=== PATIENT | male | born 1990 | race Caucasian/White ===

== ENCOUNTER 2020-09-26 11:33 | Emergency (ER) | payer MEDICAID, SELFPAY ==
--- NOTE | ~2020-09-26 | XR_ITS ---
EXAMINATION: XR CHEST CLINICAL INFORMATION: Dyspnea. COMPARISON: None TECHNIQUE: Frontal view of the chest was obtained. FINDINGS: The lungs are expanded without acute pneumonic process. The heart size and vascularity is normal. There is an elevated left hemidiaphragm. No gross bony abnormality seen.. XR/XR chest 1V IMPRESSION: Elevated left hemidiaphragm. The lungs are otherwise clear.
--- NOTE | ~2020-09-26 | CT_ITS ---
EXAMINATION: CT ANGIOGRAM OF THE CHEST WITH AND WITHOUT CONTRAST (CT PULMONARY ANGIOGRAM FOR PE) CLINICAL INFORMATION: Reason for Exam recent travel, dyspnea r/o PE COMPARISON: None TECHNIQUE: Prior to contrast administration, noncontrast localization images were obtained. Subsequently, multidetector volumetric imaging was performed from the thoracic inlet to below the diaphragms following the administration of 80 mL Omnipaque 350 intravenous contrast. No contrast reaction reported Sagittal, coronal, and MIP oblique sagittal reformatted images were obtained on the CT workstation, uploaded to PACS, and reviewed. This CT examination was performed using dose optimization techniques as appropriate, variously including the following: *Automated exposure control *Adjustment of mA and/or kV according to patient size (this includes techniques or standardized protocols for targeted exams where dose is matched to indication/reason for exam; i.e. extremities or head) *Use of iterative reconstruction technique Total exam dose-length product 435 mGy-cm FINDINGS: QUALITY OF STUDY/CONTRAST BOLUS: Satisfactory. PULMONARY ARTERIES: No central or segmental pulmonary emboli. THORACIC AORTA: No aneurysm or dissection. LUNG: The lungs are expanded with left lower lobe posterior basilar atelectasis. Rest lungs are clear. PLEURA: No pleural effusion or pneumothorax. MEDIASTINUM: Thyroid lobes are symmetrical and normal. The central trachea and the bronchi widely patent. Heart size and the great vessels are normal caliber. There is no pleural effusion. No abnormal size mediastinal lymph nodes seen. No evidence of septal bowing or right heart strain. CHEST WALL/AXILLA: No axillary or internal mammary lymphadenopathy. OSSEOUS STRUCTURES: No lytic or sclerotic process seen. UPPER ABDOMEN: Visualized liver, spleen, pancreas and bilateral adrenal glands are unremarkable. There are no radiopaque gallstones No reflux of contrast into the hepatic veins to suggest elevated right heart pressures. CT/CT angio chest PE protocol IMPRESSION: No evidence of PE. No aneurysmal dissection or aneurysm. Left lower lobe posterior basal segment atelectasis. VTE: negative
[2020-09-26 11:45] VITALS: BP 140/85; PULSE 109; RESP 30; O2SAT 98; BMI 24.0
--- NOTE | 2020-09-26 12:06 | ECG_ITS ---
Test Reason : SOB Blood Pressure : / mmHG Vent. Rate : 101 BPM Atrial Rate : 101 BPM P-R Int : 114 ms QRS Dur : 090 ms QT Int : 330 ms P-R-T Axes : 048 006 -04 degrees QTc Int : 427 ms Sinus tachycardia Voltage criteria for left ventricular hypertrophy Possible Inferior infarct , age undetermined Abnormal ECG No previous ECGs available Referred By: Reshma Montague Electronically Signed By:JANETTE RODRÍGUEZ
--- NOTE | 2020-09-26 12:09 | ED_ITS ---
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 for 42 days, PTX, NSTEMI, stroke resulting in L arm and leg weakness comes in with c/o shortness of breath, cough, ran out of his pain medications, sent by PCP - given neb PEPPER SNIDER elicited complaint: shortness of breath and cough Pertinent past history: asthma Onset (ago): day(s) (2) Context: recent illness Timing: constant and progressively worsening Severity: moderate Exacerbating factors: exertion and coughing Relieving factors: bronchodilators Known history of: asthma Associated symptoms: cough and wheezing Treatment prior to arrival: bronchodilator Related Data Home Medications Medication Instructions Recorded Confirmed albuterol sulfate 2 inh INHALATION Q4H PRN 09/26/20 09/26/20 aspirin 81 mg PO DAILY 09/26/20 09/26/20 atorvastatin [Lipitor] 20 mg PO BEDTIME 09/26/20 09/26/20 clopidogrel 75 mg PO DAILY 09/26/20 09/26/20 diltiazem HCl 30 mg PO TID 09/26/20 09/26/20 gabapentin 300 mg PO BEDTIME 09/26/20 09/26/20 lorazepam 1 mg PO BEDTIME PRN 09/26/20 09/26/20 oxycodone 5 mg PO Q12H PRN 09/26/20 09/26/20 Allergies Allergy/AdvReac Type Severity Reaction Status Date / Time No Known Allergies Allergy Unverified 03/03/20 18:46 Review of Systems Review of Systems: Constitutional : No Fever, No Chills ENT/Mouth : No sore throat, No Rhinorrhea, No Swallowing Difficulty Eyes: No Eye Pain, No Swelling, No Redness Cardiovascular : No Chest Pain, positive SOB, No Orthopnea, no Edema Respiratory : pos Cough, No Sputum, pos Wheezing, positive dyspnea Gastrointestinal : No Nausea, No Vomiting, No Diarrhea, No abdominal Pain, No Hematochezia, No Melena Genitourinary : No Dysuria, No Urinary Frequency, No Hematuria Musculoskeletal : pos joint pain, No Myalgias Skin : No Skin Lesions, No rash Neuro : No Weakness, No Numbness, No Dizziness, No Headache Psych : No Anxiety/Panic, No Depression Heme/Lymph: No Bruising, No Lymphadenopathy Endocrine : No Polyuria, No Polydipsia All other systems reviewed and are negative [facility] Past Medical History Attestation statement: The following information was validated with the patient. Medical History Asthma Endocarditis Myocardial infarction Stroke Social History Social History Smoking Status: Former smoker Use of substances other than those prescribed or required for medical reasons: No Advance Directives: No Advance Directives Information Provided: No Physical Exam Vital Signs: Vital Signs: Last Vital Signs Pulse 98 09/26/20 14:31 Resp 22 H 09/26/20 14:31 BP 140/85 H 09/26/20 11:45 Pulse Ox 97 09/26/20 14:31 Body Mass Index 24.0 Appearance: Alert. Oriented X3. No acute distress. Anxious Eyes: Pupils equal, round and reactive to light. ENT: Pharynx normal. Neck: Normal inspection. Neck supple. CVS: Normal heart rate and rhythm. Pulses normal. Respiratory: No respiratory distress. Breath sounds dimished throughout, wheezing audibly intermittently Abdomen: Soft and non-tender. Skin: Skin warm and dry. Normal skin color. Normal skin turgor. L side of chest and arm healing scars in patches noted Extremities: No lower extremity edema. No calf ttp Neuro: Oriented X 3. LUE weakness will not move due to pain, bilateral LE weakness. No sensory deficit. Course Course Course Narrative: ddimer elevated PE study ordered signed out to Dr. 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 on antibiotics for 42 days, PTX, NSTEMI, stroke resulting in L arm and leg weakness - here today with worsening shortness of breath x 3 days, had asthma as a child here wheezing - sent by PCP office at this time labs, CXR, cultures, ddimer, troponin, 5mg neb ordered, IV steroids, ran out of his pain medications for L UE normally on oxycodone Lab Data Result diagrams: 09/26/20 12:37 04/12/21 12:36 Labs: Lab Results 09/26/20 09/26/20 09/26/20 Range/Units 12:36 12:36 12:37 WBC 8.6 (4.8-10.8) X10*3/uL RBC 3.54 L (4.60-5.80) X10*6/uL Hgb 10.6 L (14.0-18.0) g/dl Hct 32.2 L (42-52) % MCV 91.0 (80-98) fL MCH 29.9 (27.0-33.0) pg MCHC 32.9 (31.0-36.0) g/dl RDW 13.1 (11.0-16.0) % Plt Count 354 (160-400) X10*3/uL MPV 9.1 L (9.4-12.4) fL Immature Gran % (Auto) 0.6 H (0.0-0.4) % Neut % (Auto) 55.0 (45-73) % Lymph % (Auto) 30.3 (20-40) % [place] % (Auto) 11.2 H (2-11) % Eos % (Auto) 2.4 (0-4) % Baso % (Auto) 0.5 (0-2) % Lymph # (Auto) 2.6 (1.2-4.9) X10*3/uL [place] # (Auto) 1.0 (0.1-1.2) X10*3/uL Eos # (Auto) 0.2 (0.0-0.4) X10*3/uL Baso # (Auto) 0.0 (0.0-0.2) X10*3/uL Abs Immat Gran (auto) 0.05 H (0.00-0.03) X10*3/uL Absolute Neuts (auto) 4.7 (2.0-8.3) X10*3/uL Absolute Nucleated RBC 0.000 (0.0-0.012) X10*3/uL Nucleated RBC % (auto) 0.0 (0.0-0.2) /100WBC PT 11.6 (10.8-13.0) SEC INR 1.0 (0.9-1.1) APTT 33.0 (24.1-38.0) SEC D-Dimer NG/ML Sodium 143 (135-145) mmol/L Potassium 3.7 (3.3-5.1) mmol/L Chloride 108 (96-108) mmol/L Carbon Dioxide 24 (22-29) mmol/L Anion Gap 15 (12-20) BUN 15 (9-16) mg/dL Creatinine 0.76 (0.5-1.4) mg/dL Estim Creat Clear Calc 119.0 Estimated GFR > 60 Random Glucose 103 (60-115) mg/dL Lactic Acid (0.5-2.0) mmol/L Calcium 9.6 (8.4-10.2) mg/dL Magnesium (1.6-2.6) mg/dL Total Bilirubin (0.0-1.0) mg/dL Direct Bilirubin (0.0-0.5) mg/dL AST (5-37) U/L ALT (0-40) U/L Alkaline Phosphatase (39-117) U/L Troponin I High Sens (<3.5-35.0) ng/L Total Protein (6.5-8.0) g/dL Albumin (3.5-5.0) g/dL Lipase (8-78) U/L COVID-19 ([facility]) (Negative) COVID-19 Clin Com 09/26/20 09/26/20 09/26/20 Range/Units 12:37 12:37 12:37 WBC (4.8-10.8) X10*3/uL RBC (4.60-5.80) X10*6/uL Hgb (14.0-18.0) g/dl Hct (42-52) % MCV (80-98) fL MCH (27.0-33.0) pg MCHC (31.0-36.0) g/dl RDW (11.0-16.0) % Plt Count (160-400) X10*3/uL MPV (9.4-12.4) fL Immature Gran % (Auto) (0.0-0.4) % Neut % (Auto) (45-73) % Lymph % (Auto) (20-40) % [place] % (Auto) (2-11) % Eos % (Auto) (0-4) % Baso % (Auto) (0-2) % Lymph # (Auto) (1.2-4.9) X10*3/uL [place] # (Auto) (0.1-1.2) X10*3/uL Eos # (Auto) (0.0-0.4) X10*3/uL Baso # (Auto) (0.0-0.2) X10*3/uL Abs Immat Gran (auto) (0.00-0.03) X10*3/uL Absolute Neuts (auto) (2.0-8.3) X10*3/uL Absolute Nucleated RBC (0.0-0.012) X10*3/uL Nucleated RBC % (auto) (0.0-0.2) /100WBC PT (10.8-13.0) SEC INR (0.9-1.1) APTT (24.1-38.0) SEC D-Dimer 466 NG/ML Sodium (135-145) mmol/L Potassium (3.3-5.1) mmol/L Chloride (96-108) mmol/L Carbon Dioxide (22-29) mmol/L Anion Gap (12-20) BUN (9-16) mg/dL Creatinine (0.5-1.4) mg/dL Estim Creat Clear Calc Estimated GFR Random Glucose (60-115) mg/dL Lactic Acid 1.7 (0.5-2.0) mmol/L Calcium (8.4-10.2) mg/dL Magnesium 1.6 (1.6-2.6) mg/dL Total Bilirubin 0.3 (0.0-1.0) mg/dL Direct Bilirubin < 0.2 (0.0-0.5) mg/dL AST 38 H (5-37) U/L ALT 96 H (0-40) U/L Alkaline Phosphatase 80 (39-117) U/L Troponin I High Sens (<3.5-35.0) ng/L Total Protein 7.1 (6.5-8.0) g/dL Albumin 4.4 (3.5-5.0) g/dL Lipase 53 (8-78) U/L COVID-19 ([facility]) (Negative) COVID-19 Clin Com 09/26/20 09/26/20 Range/Units 12:37 14:03 WBC (4.8-10.8) X10*3/uL RBC (4.60-5.80) X10*6/uL Hgb (14.0-18.0) g/dl Hct (42-52) % MCV (80-98) fL MCH (27.0-33.0) pg MCHC (31.0-36.0) g/dl RDW (11.0-16.0) % Plt Count (160-400) X10*3/uL MPV (9.4-12.4) fL Immature Gran % (Auto) (0.0-0.4) % Neut % (Auto) (45-73) % Lymph % (Auto) (20-40) % [place] % (Auto) (2-11) % Eos % (Auto) (0-4) % Baso % (Auto) (0-2) % Lymph # (Auto) (1.2-4.9) X10*3/uL [place] # (Auto) (0.1-1.2) X10*3/uL Eos # (Auto) (0.0-0.4) X10*3/uL Baso # (Auto) (0.0-0.2) X10*3/uL Abs Immat Gran (auto) (0.00-0.03) X10*3/uL Absolute Neuts (auto) (2.0-8.3) X10*3/uL Absolute Nucleated RBC (0.0-0.012) X10*3/uL Nucleated RBC % (auto) (0.0-0.2) /100WBC PT (10.8-13.0) SEC INR (0.9-1.1) APTT (24.1-38.0) SEC D-Dimer NG/ML Sodium (135-145) mmol/L Potassium (3.3-5.1) mmol/L Chloride (96-108) mmol/L Carbon Dioxide (22-29) mmol/L Anion Gap (12-20) BUN (9-16) mg/dL Creatinine (0.5-1.4) mg/dL Estim Creat Clear Calc Estimated GFR Random Glucose (60-115) mg/dL Lactic Acid (0.5-2.0) mmol/L Calcium (8.4-10.2) mg/dL Magnesium (1.6-2.6) mg/dL Total Bilirubin (0.0-1.0) mg/dL Direct Bilirubin (0.0-0.5) mg/dL AST (5-37) U/L ALT (0-40) U/L Alkaline Phosphatase (39-117) U/L Troponin I High Sens < 3.5 (<3.5-35.0) ng/L Total Protein (6.5-8.0) g/dL Albumin (3.5-5.0) g/dL Lipase (8-78) U/L COVID-19 ([facility]) Negative (Negative) COVID-19 Clin Com See Note ECG Data Attestation: I personally reviewed and interpreted this ECG as follows: ECG interpretation date: 09/26/20 ECG interpretation time: 12:24 Interpretation: Rate: 101 Rhythm: sinus tachycardia [place]: normal , LVH Normal P waves. Normal GLEN. Normal QRS complex. ST T wave : normal, no SB qTC: normal prior studies: no acute ischemia The study has been interpreted contemporaneously by me. . Discharge Plan Discharge Clinical Impression: Asthma with exacerbation Prescriptions: No Action atorvastatin [Lipitor] 20 mg Tablet 20 mg PO BEDTIME RF: 0 clopidogrel 75 mg Tablet 75 mg PO DAILY RF: 0 aspirin 81 mg Tablet,Delayed Release (Dr/Ec) 81 mg PO DAILY RF: 0 gabapentin 300 mg Capsule 300 mg PO BEDTIME RF: 0 lorazepam 1 mg Tablet 1 mg PO BEDTIME PRN (Reason: Anxiety) RF: 0 diltiazem HCl 30 mg Tablet 30 mg PO TID RF: 0 oxycodone 5 mg Tablet 5 mg PO Q12H PRN (Reason: Pain) RF: 0 albuterol sulfate 90 mcg/actuation Aerosol Powdr Breath Activated 2 inh INHALATION Q4H PRN (Reason: Shortness Of Breath Or Wheezing) RF: 0
[2020-09-26] MEDS: Morphine Sulfate 4 MG/ML CARTRIDGE IVPUSH (12:15)
[2020-09-26] MEDS: methylPREDNISolone Sod Succ 125 MG/2 ML VIAL IVPUSH (12:15)
[2020-09-26] MEDS: ondansetron HCL 4 MG/2 ML VIAL IVPUSH (12:15)
[2020-09-26 12:43] LABS: MANUAL DIFF FLAG NO
[2020-09-26 12:45] LABS: Basophils Percent Auto 0.5 % (0-2); Eosinophils Absolute Auto 0.2 X10*3/uL (0.0-0.4); Eosinophils Percent Auto 2.4 % (0-4); Hematocrit 32.2 % (42-52); Hemoglobin 10.6 g/dl (14.0-18.0); Imm Gran Abs Auto 0.05 X10*3/uL (0.00-0.03); Imm Gran Pct Auto 0.6 % (0.0-0.4); Lymphocytes Absolute Auto 2.6 X10*3/uL (1.2-4.9); Lymphocytes Percent Auto 30.3 % (20-40); Mean Corpuscular HGB Conc 32.9 g/dl (31.0-36.0); Mean Corpuscular Hemoglobin 29.9 pg (27.0-33.0); Mean Platelet Volume 9.1 fL (9.4-12.4); Monocytes Percent Auto 11.2 % (2-11); Neutrophils Absolute Auto 4.7 X10*3/uL (2.0-8.3); Platelet Count 354 X10*3/uL (160-400); Red Blood Count 3.54 X10*6/uL (4.60-5.80); Red Cell Distribution Width 13.1 % (11.0-16.0); White Blood Count 8.6 X10*3/uL (4.8-10.8)
[2020-09-26 12:51] VITALS: PULSE 95; O2SAT 98
[2020-09-26] MEDS: Albuterol Sulfate (0.083%) 2.5 MG/3 ML VIAL.NEB 5 MG INHALE (12:51)
[2020-09-26 12:58] LABS: Prothrombin Time 11.6 SEC (10.8-13.0)
[2020-09-26 13:01] LABS: D Dimer 466 NG/ML
[2020-09-26 13:14] LABS: Lactic Acid 1.7 mmol/L (0.5-2.0)
[2020-09-26 13:19] LABS: Anion Gap 15 (12-20); Blood Urea Nitrogen 15 mg/dL (9-16); Calcium 9.6 mg/dL (8.4-10.2); Carbon Dioxide 24 mmol/L (22-29); Chloride 108 mmol/L (96-108); Estimated Glomerular Filt Rate > 60; Glucose Random 103 mg/dL (60-115); Potassium 3.7 mmol/L (3.3-5.1); Sodium 143 mmol/L (135-145)
[2020-09-26 13:21] LABS: Alanine Aminotransferase 96 U/L (0-40); Albumin Level 4.4 g/dL (3.5-5.0); Alkaline Phosphatase 80 U/L (39-117); Aspartate Amino Transferase 38 U/L (5-37); Bilirubin Direct < 0.2 mg/dL (0.0-0.5); Bilirubin Total 0.3 mg/dL (0.0-1.0); Lipase 53 U/L (8-78); Magnesium 1.6 mg/dL (1.6-2.6); Total Protein 7.1 g/dL (6.5-8.0)
[2020-09-26 13:23] LABS: Troponin-I High Sensitivity < 3.5 ng/L (<3.5-35.0)
[2020-09-26 14:30] LABS: COVID-19 Test Negative (Negative)
[2020-09-26 14:31] VITALS: PULSE 98; RESP 22; O2SAT 97
[2020-09-26 15:59] LABS: Amphetamine Screen Urine Not Detected (Not Detect); Barbiturates, Urine Not Detected (Not Detect); Benzodiazepines Screen Urine Not Detected (Not Detect); Cannabinoid Screen Urine POSITIVE (Not Detect); Cocaine Screen Urine Not Detected (Not Detect); Opiate Screen Urine POSITIVE (Not Detect); Phencyclidine Screen Urine Not Detected (Not Detect)
[2020-09-26] MEDS: iohexoL 350 MG/ML 100 ML INFUS..BTL IV (16:20)
[2020-09-26 16:27] VITALS: BP 124/80; PULSE 102; RESP 15; TEMP 36.6; O2SAT 98
[2020-09-26] MEDS: oxyCODONE HCl Immed Release 5 MG TABLET PO (18:21)
== END 2020-09-26 19:10 | disposition home or self-care (01) ==
PROVIDERS: Emergency Provider Emergency Medicine
DX: J45.901 Unspecified asthma with (acute) exacerbation (principal); Z20.822 Contact with and (suspected) exposure to COVID-19; I25.2 Old myocardial infarction; Z86.73 Personal history of transient ischemic attack (TIA), and cerebral infarction without residual deficits; F12.90 Cannabis use, unspecified, uncomplicated
CPT/HCPCS: 36415; 71045; 71275; 80048; 80076; 80307; 83605; 83690; 83735; 84484; 85025; 85379; 85610; 85730; 87040; 87635; 93005; 94640; 94644; 96374; 96375; 99284; J2270; J2405; J2930; Q9967